=== PATIENT | female | born 1990 | race Caucasian/White ===

== ENCOUNTER 2019-12-17 16:59 | Emergency (ER) | payer BC ==
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
--- NOTE | 2019-12-17 18:02 | CR ---
Right wrist: 3 views of the right wrist were obtained. Comparison: No previous wrist study. Joint spaces are maintained. No fracture, dislocation or other bony abnormality is identified. Impression: 1. No abnormality is identified on right wrist exam. Diagnostic code #1 Study was dictated in MDT
--- NOTE | 2019-12-17 18:02 | CR ---
Left hand: 3 views of the left hand were obtained. Comparison: No previous hand exam is available. Joint spaces are preserved. No fracture, dislocation or other bony abnormality is seen. Impression: 1. No abnormality is appreciated on 3 view right hand exam. Diagnostic code #1 Study was dictated in MDT
== END 2019-12-17 18:26 | disposition home or self-care (01) ==
LOC: MW.ED 16:59
DX: S69.91XA Unspecified injury of right wrist, hand and finger(s), initial encounter (principal); Z91.048 Other nonmedicinal substance allergy status; Z88.8 Allergy status to other drugs, medicaments and biological substances; X58.XXXA Exposure to other specified factors, initial encounter
CPT/HCPCS: 73110-26-RT; 73110-RT; 73130-26-RT; 73130-RT; 99283

== ENCOUNTER 2023-04-25 20:54 | Emergency (ER) | payer BC ==
[2023-04-25] MEDS ORDERED: Ketorolac 30 MG/ML SDV IM ONE (22:57)
[2023-04-25] MEDS ORDERED: Lidocaine 4% 1 each Patch TOP STA (22:57)
== END 2023-04-25 23:47 | disposition home or self-care (01) ==
LOC: MW.ED 20:54
DX: M54.50 Low back pain, unspecified (principal); E11.9 Type 2 diabetes mellitus without complications; Z88.8 Allergy status to other drugs, medicaments and biological substances; Z91.09 Other allergy status, other than to drugs and biological substances
CPT/HCPCS: 96372; 99283; A9270; J1885; J3360